=== PATIENT | female | born 1945 | race Caucasian/White ===

== ENCOUNTER 2017-10-20 14:32 | Inpatient (IN) | payer OTHER ==
[~2017-10-20] VITALS: Ht 152.4 cm; Wt 70.8 kg
[2017-10-20] MEDS ORDERED: COZAAR100 MG PO (15:33)
[2017-10-20] MEDS ORDERED: SINGULAIR10 MG PO (15:33)
[2017-10-20] MEDS ORDERED: SYNTHROID88 MCG PO (15:33)
[2017-10-20] MEDS ORDERED: NEURONTIN300 MG PO (15:34)
[2017-11-01] MEDS ORDERED: TESSALON PERLE100 M1 PO (13:57)
[2017-11-01] MEDS ORDERED: ULTRACET PO (13:57)
[2017-11-01] MEDS ORDERED: INTESTINEX680 M1 PO (13:57)
== END 2017-11-01 14:31 | disposition home health service (06) | DRG 330 ==
LOC: SURH 10-28 07:54 → O/R 10-28 07:54 → SURH 10-28 11:00 → MEDI 10-28 19:13 → SURH 10-28 20:57
PROVIDERS: Surgery
PROC: 0DTP4ZZ Resection of Rectum, Percutaneous Endoscopic Approach (ICD-10-PCS; 2017-10-28)
PROC: 07TC4ZZ Resection of Pelvis Lymphatic, Percutaneous Endoscopic Approach (ICD-10-PCS; 2017-10-28)
PROC: 0D1B4Z4 Bypass Ileum to Cutaneous, Percutaneous Endoscopic Approach (ICD-10-PCS; 2017-10-28)
PROC: 0DJD8ZZ Inspection of Lower Intestinal Tract, Via Natural or Artificial Opening Endoscopic (ICD-10-PCS; 2017-10-28)
PROC: 4A033R1 Measurement of Arterial Saturation, Peripheral, Percutaneous Approach (ICD-10-PCS; 2017-10-28)
PROC: 3E0F7GC Introduction of Other Therapeutic Substance into Respiratory Tract, Via Natural or Artificial Opening (ICD-10-PCS; 2017-10-28)
PROC: 4A12X4Z Monitoring of Cardiac Electrical Activity, External Approach (ICD-10-PCS; 2017-10-28)
PROC: 0DTN4ZZ Resection of Sigmoid Colon, Percutaneous Endoscopic Approach (ICD-10-PCS; principal; 2017-10-28 15:15)
DX: C20 Malignant neoplasm of rectum (principal); J44.1 Chronic obstructive pulmonary disease with (acute) exacerbation; J45.21 Mild intermittent asthma with (acute) exacerbation; E11.9 Type 2 diabetes mellitus without complications; E03.8 Other specified hypothyroidism; I73.89 Other specified peripheral vascular diseases

== ENCOUNTER 2019-01-06 16:18 | Inpatient (IN) | payer OTHER ==
[~2019-01-06] VITALS: Ht 152.4 cm; Wt 65.8 kg
[~2019-01-06 16:18] MED LIST: COZAAR100 MG PO; INTESTINEX680 M1 PO; NEURONTIN300 MG PO; SINGULAIR10 MG PO; SYNTHROID88 MCG PO; TESSALON PERLE100 M1 PO; ULTRACET PO
[2019-02-08] MEDS ORDERED: OXYC1TAB9 PO (08:31)
[2019-02-08] MEDS ORDERED: INTESTINEX680 M1 PO (08:32)
[2019-02-08] MEDS ORDERED: PANTOPRAZOLE SO40 MG PO (08:32)
== END 2019-02-08 10:40 | disposition home or self-care (01) | DRG 348 ==
LOC: SURG 01-26 15:00 → O/R 02-02 09:05 → SURG 02-02 09:05
PROVIDERS: ADMIT Surgery
PROC: 0WQF4ZZ Repair Abdominal Wall, Percutaneous Endoscopic Approach (ICD-10-PCS; 2019-02-02)
PROC: 4A033R1 Measurement of Arterial Saturation, Peripheral, Percutaneous Approach (ICD-10-PCS; 2019-02-02)
PROC: 3E0F7GC Introduction of Other Therapeutic Substance into Respiratory Tract, Via Natural or Artificial Opening (ICD-10-PCS; 2019-02-02)
PROC: 4A12X4Z Monitoring of Cardiac Electrical Activity, External Approach (ICD-10-PCS; 2019-02-02)
PROC: 0DBB4ZZ Excision of Ileum, Percutaneous Endoscopic Approach (ICD-10-PCS; principal; 2019-02-02 08:30)
DX: Z43.2 Encounter for attention to ileostomy (principal); C20 Malignant neoplasm of rectum; J44.1 Chronic obstructive pulmonary disease with (acute) exacerbation; J95.89 Other postprocedural complications and disorders of respiratory system, not elsewhere classified; K43.5 Parastomal hernia without obstruction or gangrene; K66.0 Peritoneal adhesions (postprocedural) (postinfection); I73.9 Peripheral vascular disease, unspecified; J45.20 Mild intermittent asthma, uncomplicated; E03.8 Other specified hypothyroidism; E11.9 Type 2 diabetes mellitus without complications